=== PATIENT | female | born 1975 | race Two or more races ===

== ENCOUNTER 2022-08-21 02:23 | Inpatient (IN) | payer MEDICAID ==
[2022-08-21] VITALS (16 sets, daily range): BP systolic 77–141; BP diastolic 42–77
[~2022-08-21] VITALS: Ht 165.1 cm; Wt 60.8 kg
--- NOTE | 2022-08-21 02:25 | NUR ---
PT BROUGHT IN BY EMS; PT PLACED IN 5A Addendum: 08/21/22 at 0331 by [facility] OFFICERS AT [facility]
[2022-08-21] MEDS ORDERED: IV NORMAL SALINE 1000 ML BAG IV ONE (02:30)
[2022-08-21] MEDS ORDERED: HALOPERIDOL LACTATE 5 MG/1 ML VIAL IM ONE (02:30)
[2022-08-21 03:21] LABS: HEMATOCRIT 31.1 % (31.2-41.9); MEAN CORPUSCULAR HEMOGLOBIN 35.3 uug (24.7-32.8); MEAN CORPUSCULAR VOLUME 107.7 fL (75.5-95.3); PLATELET COUNT (AUTO) 120 K/uL (179-408)
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
[2022-08-21] MEDS ORDERED: HALOPERIDOL LACTATE 5 MG/1 ML VIAL ONE (03:24)
--- NOTE | 2022-08-21 03:29 | NUR ---
Pt is on 5150 for GD; pt was given haldol 10mg IM on the rt deltoid.
[2022-08-21 03:30] LABS: MAGNESIUM 2.2 mg/dL (1.8-2.4); PHOSPHOROUS 5.4 mg/dL (2.5-4.9)
[2022-08-21 03:31] LABS: ALANINE AMINOTRANSFERASE 33 U/L (14-59); ALKALINE PHOSPHATASE 116 U/L (50-136); ASPARTATE AMINOTRANSFERASE 52 U/L (15-37); BILIRUBIN,DIRECT 0.2 mg/dL (0.0-0.2); BILIRUBIN,TOTAL 0.8 mg/dL (0.2-1.0); CARBON DIOXIDE 26 mmol/L (21-32); CHLORIDE 93 mmol/L (98-107); CREATININE 7.4 mg/dL (0.6-1.3); GLUCOSE 89 mg/dL (74-106); POTASSIUM 3.4 mmol/L (3.5-5.1); TOTAL PROTEIN, SERUM 7.8 g/dL (6.4-8.2); UREA NITROGEN, BLOOD 45 mg/dL (7-18)
[2022-08-21 03:38] LABS: ACETAMINOPHEN < 2.0 ug/mL (10-30)
[2022-08-21 03:40] LABS: ETHANOL < 3 MG/DL (0-0)
[2022-08-21 03:45] LABS: BAND % (MANUAL) 1 % (0-10); LYMPHOCYTES % (MANUAL) 12 % (20-40); MONOCYTES % (MANUAL) 8 % (2-10)
[2022-08-21] MEDS ORDERED: OXYCODONE/APAP 5-325 MG TABLET PO ONE (03:45)
[2022-08-21 03:46] LABS: EOSINOPHILS % (MANUAL) 1 % (0-8); NEUTROPHILS % (MANUAL) 78 % (42-75)
[2022-08-21] MEDS ORDERED: OXYCODONE/APAP 5-325 MG TABLET ONE (03:46)
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
[2022-08-21] MEDS ORDERED: APIX2.5T PO (06:23)
[2022-08-21] MEDS ORDERED: NOREPINEPHRINE BITARTRATE 8 MG in IV NORMAL SALINE 250 ML IV ONE (09:45)
[2022-08-21] MEDS ORDERED: NOREPINEPHRINE BITARTRATE 4 MG/4 ML VIAL IV ONE ×3 (09:50→22:44)
--- NOTE | 2022-08-21 10:45 | NUR ---
at 1020, started levophed at 0.2 mcg/kg/min, pt was maintaining pressure but not increasing. increased drip rate to 0.4 mcg/kg/min.
[2022-08-21] MEDS ORDERED: PIPERACILLIN/TAZOBACTAM/D5W 50 ML IV ONE (11:39)
--- NOTE | 2022-08-21 11:40 | NUR ---
pt's pressure continued to climb passed 130 SBP, so readjusted levophed rate to 0.3 mcg/kg/min.
[2022-08-21] MEDS ORDERED: PIPERACILLIN SODIUM/TAZOBACTAM 3.375 G in IV DEXTROSE 5% 50 ML IV ONE (11:45)
--- NOTE | 2022-08-21 14:40 | NUR ---
pt's BP started dropping and stayed around 80SPB, mincreased rate again to 0.4 mcg/kg/min.
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
--- NOTE | 2022-08-21 16:21 | NUR ---
Clinical Social Work Note: SW spoke with patients cousin, Hung Christiansen, ([phone]) over the phone and she states the patient has not been in compliance with her dialysis this past week and has not slept the past couple of nights. SW will continue to follow up with the patient and family.
--- NOTE | 2022-08-21 17:01 | NUR ---
Nurse replace the bag of norepinephrine with a new bag. The rate continues at 0.4 mcg/kg/min. Patient able to communicate by asking to put water soluble lube on her lips and mouthcare as well.
[2022-08-21] MEDS ORDERED: ONDANSETRON 4 MG/2 ML VIAL IV PRN (18:15)
[2022-08-21] MEDS ORDERED: ACETAMINOPHEN 325 MG TABLET PO PRN (18:15)
--- NOTE | 2022-08-21 19:20 | NUR ---
Report given to "DONTE" RN, in ICU.
[2022-08-21] MEDS: IV D5/ 0.9% NACL 1,000 ML IV PRN (20:23)
[2022-08-21] MEDS ORDERED: NOREPINEPHRINE BITARTRATE 32 MG in IV NORMAL SALINE 218 ML IV PRN (20:45)
[2022-08-22] VITALS (66 sets, daily range): BP systolic 85–133; BP diastolic 39–76
[2022-08-22] MEDS: NOREPINEPHRINE BITARTRATE 32 MG in IV NORMAL SALINE 218 ML IV PRN (01:57)
--- NOTE | 2022-08-22 04:11 | NUR ---
Patient admitted from ED via stretcher. In no distress. generalized weakness. on Levophed Drip to maintain SBP>90. SBP 115 Drip at .4mcg/kg/min. Pt has H?O ESRD on Dialysis MWF. Oriented to room spoke with family member by phone. Assessment complete. Pt anuric, will continue to monitor.
[2022-08-22 04:57] LABS: HEMATOCRIT 31.9 % (31.2-41.9); MEAN CORPUSCULAR HEMOGLOBIN 35.5 uug (24.7-32.8); MEAN CORPUSCULAR VOLUME 106.7 fL (75.5-95.3); PLATELET COUNT (AUTO) 167 K/uL (179-408)
[2022-08-22 05:40] LABS: BILIRUBIN,TOTAL 0.7 mg/dL (0.2-1.0); MAGNESIUM 2.3 mg/dL (1.8-2.4); PHOSPHOROUS 6.5 mg/dL (2.5-4.9); POTASSIUM 3.6 mmol/L (3.5-5.1); TOTAL PROTEIN, SERUM 7.2 g/dL (6.4-8.2)
[2022-08-22 05:43] LABS: CREATININE 9.1 mg/dL (0.6-1.3)
[2022-08-22 05:53] LABS: THYROID STIMULATING HORMONE 5.87 mIU/mL (0.358-3.740)
[2022-08-22] MEDS: PANTOPRAZOLE SODIUM 40 MG TABLET.DR PO SCH ×2 (06:48→07:00)
--- NOTE | 2022-08-22 07:00 | NUR ---
Verbal bedside report received from Fiona RILEY. Pt. sleepy. Easily aroused. Complete intital assessment rendered. Cardiac moniotor intact depicting SR 60's. No ectopy noted. Alarms set per protocol. Levophed gtts. in progress conc. 32mg/250cc 0.9 NS. infusing on IV pump at 0.2 mcg/kg/min. 6.17 cc/hr. Pt. able to verbalize that she is hungry. Complete assess details noted on nursing flowsheet. Monitored for acute distress.
--- NOTE | 2022-08-22 07:01 | NUR ---
Ptremains on levophed drip attempts made to decrease rate and discontinue but pt's SBP trends below 90. hence had to be maintained at 0.2mcg. pt AAOx3 no episwodes of ams noted Calm Co-operative.
--- NOTE | 2022-08-22 07:30 | NUR ---
Night nurse Ghazala stated that protonix was given by her but she was unable to doccumment.
[2022-08-22] MEDS: HALOPERIDOL LACTATE 5 MG/1 ML VIAL IM PRN (07:49)
--- NOTE | 2022-08-22 07:59 | NUR ---
PTaaox4 Pending Dialysis today. Refuse bath in am. Call placed to Dr Martin re lab results.
--- NOTE | 2022-08-22 08:29 | NUR ---
SW spoke to patient's sister, Itzel ([phone]) over the phone and she states that she will come to visit the patient today around 12:45pm. SW informed the patient's nurse.
--- NOTE | 2022-08-22 09:32 | NUR ---
95% breakfast eaten w/o incident. Monitored for aspiration.
--- NOTE | 2022-08-22 10:36 | NUR ---
vat skimmer called to verify dialysis treatment today for pt. Pt. being prepared to be transferred to another room to accomodate treatment.
--- NOTE | 2022-08-22 12:23 | NUR ---
1200 late entry assumed care alert and oriented remains on room air, skin is pink, warm, and dry to touch. On Levophed at 0.2mck/kg/min. Anuric and awaiting dialysis today.
--- NOTE | 2022-08-22 14:24 | NUR ---
SW spoke to patient's sister, Itzel ([phone]) at the patient's bedside and provided legal resources to her and the patient.
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
--- NOTE | 2022-08-22 18:34 | NUR ---
Anuric tolerated dialysis well today. Eat small amount of meals 50%. BM x1 and no complaints of pain.
[2022-08-23] VITALS (57 sets, daily range): BP systolic 87–153; BP diastolic 48–94
[2022-08-23] MEDS: IV D5/ 0.9% NACL 1,000 ML IV PRN ×2 (04:53→21:33)
[2022-08-23 05:00] LABS: HEMATOCRIT 33.2 % (31.2-41.9); MEAN CORPUSCULAR VOLUME 106.2 fL (75.5-95.3); PLATELET COUNT (AUTO) 150 K/uL (179-408)
[2022-08-23 05:11] LABS: CREATININE 6.7 mg/dL (0.6-1.3); PHOSPHOROUS 4.7 mg/dL (2.5-4.9)
[2022-08-23] MEDS ORDERED: POTASSIUM CHLORIDE 10 MEQ TAB.PRT.SR PO ONE ×2 (06:15→12:30)
[2022-08-23] MEDS: PANTOPRAZOLE SODIUM 40 MG TABLET.DR PO SCH (06:22)
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
--- NOTE | 2022-08-23 07:00 | NUR ---
Recieved report from machinist 2nd shift nurse Shanon Chanel RN Pt is on room air and resting comfortably with good oxygen saturation and stable VS
[2022-08-23 08:06] LABS: HEPATITIS B SURFACE AG Negative (Negative)
[2022-08-23] MEDS: MORPHINE SULFATE 2 MG/1 ML DISP.SYRIN IV PRN ×3 (08:46→19:51)
--- NOTE | 2022-08-23 13:00 | NUR ---
Dr Martin on unit saw patient. I spoke with him about patients condition and informed him that patient is still on levophed at 0.2mg/kg/min and that when the pt was titrated down to 0.1 mg/kg/min her SBP dropped to 90 before I titrated it back to previous rate to maintain BP and perfusion. He wants to observe the pt until Saturday to see if we can wean her off levophed.
--- NOTE | 2022-08-23 13:35 | NUR ---
pt claims that she can't find her debit card which on the belongs list state that it was with the patient.
--- NOTE | 2022-08-23 13:37 | NUR ---
Belongings returned to patient from safe. 2 ID cards and $8901 USD 89 $100 bills and 1 1$ bill. Pt searched her belongings at bedside for her debit card which she says that she can't find. now. $9 more dollars found in patients pants 1 $5 bill and 4 $1 bills. Money counted in front of patient and with witness Raquel Rosas RN. Pt requests to keep belongings
--- NOTE | 2022-08-23 19:15 | NUR ---
Verbal endorsement received from Jeferson RILEY. Pt. is awake in bed watching television. monitor and storage bin tender intact depicting SR. Automatic NIBP cuff intact to left calf with interval of 1 hour , Levophed gtts infusing to right femoral TLC. at 0.2mcg/kg/min. Per day RN attempts to wean pt. off levophed have been unsuccessful. Pt. rapidly becomes hypotensive. Pt. monitored for acute distress. Bed in low position, 2 siderails up for pt. safety.
--- NOTE | 2022-08-23 19:45 | NUR ---
Pt. c/o generalized pain. points to left side of body from chest to legs as achy. States she also has back pain from lying in the bed. advised pt. not to get oob and to call for assistance when repositioning so central line doesnt get dislodged. Medicated for pain with PRN morphine 1mg. as ordered.
[2022-08-23] MEDS: NOREPINEPHRINE BITARTRATE 32 MG in IV NORMAL SALINE 218 ML IV PRN (22:45)
[2022-08-24] VITALS (41 sets, daily range): BP systolic 85–153; BP diastolic 37–84
[2022-08-24] MEDS: HALOPERIDOL LACTATE 5 MG/1 ML VIAL IM PRN ×2 (01:44→23:14)
[2022-08-24 05:03] LABS: HEMATOCRIT 31.1 % (31.2-41.9); MEAN CORPUSCULAR HEMOGLOBIN 35.5 uug (24.7-32.8); MEAN CORPUSCULAR VOLUME 107.2 fL (75.5-95.3); PLATELET COUNT (AUTO) 135 K/uL (179-408)
[2022-08-24 06:00] LABS: PHOSPHOROUS 4.4 mg/dL (2.5-4.9); POTASSIUM 3.7 mmol/L (3.5-5.1)
[2022-08-24 06:06] LABS: CREATININE 8.3 mg/dL (0.6-1.3)
--- NOTE | 2022-08-24 07:20 | NUR ---
pT. RESTING. APPEARS COMFORTABLE. ENDORSED TO ONCOMING SHIFT RN WITH LEVOPHED GTTS CONTINUED. PUMP DEPICTS 0.14 MCG/KG/MIN. VSS NO C/O PAIN DISCOMFORT.
[2022-08-24] MEDS: PANTOPRAZOLE SODIUM 40 MG TABLET.DR PO SCH (08:27)
[2022-08-24] MEDS: MORPHINE SULFATE 2 MG/1 ML DISP.SYRIN IV PRN ×2 (09:41→19:55)
[2022-08-24] MEDS: IV D5/ 0.9% NACL 1,000 ML IV PRN (14:41)
[2022-08-24] MEDS ORDERED: LORAZEPAM 2 MG/1 ML VIAL IV PRN (15:15)
--- NOTE | 2022-08-24 20:07 | NUR ---
BP 133/72, HR 72, Levophed turned off. off
[2022-08-24] MEDS ORDERED: PIPERACILLIN/TAZO 2.25 G in IV DEXTROSE 5% 50 ML IV SCH (21:00)
[2022-08-24] MEDS ORDERED: PIPERACILLIN/TAZO 2.25 GM VIAL ONE (23:35)
[2022-08-25] VITALS (32 sets, daily range): BP systolic 90–129; BP diastolic 39–68
[2022-08-25 05:26] LABS: HEMATOCRIT 29.8 % (31.2-41.9); MEAN CORPUSCULAR HEMOGLOBIN 35.4 uug (24.7-32.8); MEAN CORPUSCULAR VOLUME 107.6 fL (75.5-95.3); PLATELET COUNT (AUTO) 137 K/uL (179-408)
[2022-08-25 05:33] LABS: BILIRUBIN,TOTAL 0.5 mg/dL (0.2-1.0); CREATININE 6.1 mg/dL (0.6-1.3); MAGNESIUM 1.9 mg/dL (1.8-2.4); PHOSPHOROUS 4.5 mg/dL (2.5-4.9); POTASSIUM 3.6 mmol/L (3.5-5.1); TOTAL PROTEIN, SERUM 6.7 g/dL (6.4-8.2)
--- NOTE | 2022-08-25 07:30 | NUR ---
PATIENT IS ASLEEP AND IS IN NO DISTRESS. LEVOPHED INGFUSING ORDERED, BY THE RIGHT GROIN TLC PLEASE SEE IV SPREAD SHEET FOR RATE. IV SITE INTACT AND PATENT.
[2022-08-25] MEDS: PANTOPRAZOLE SODIUM 40 MG TABLET.DR PO SCH (07:50)
[2022-08-25] MEDS: MORPHINE SULFATE 2 MG/1 ML DISP.SYRIN IV PRN ×2 (07:50→13:15)
[2022-08-25] MEDS: PIPERACILLIN/TAZO 2.25 G in IV DEXTROSE 5% 50 ML IV SCH ×2 (08:02→15:20)
[2022-08-25] MEDS ORDERED: FOLIC ACID/VITAMIN B COMP W-C TABLET PO SCH (09:00)
[2022-08-25] MEDS: NOREPINEPHRINE BITARTRATE 32 MG in IV NORMAL SALINE 218 ML IV PRN (10:42)
--- NOTE | 2022-08-25 14:41 | NUR ---
Spoke with Dr Martin about pt's desire to be discharged and to go home. He ordered to stop pressors and monitor VS for the next hour and that he would be in to see her at around 16:00
[2022-08-25] MEDS ORDERED: AMOX-427 PO (16:57)
[2022-08-25] MEDS ORDERED: FOLI0.8T2 PO (16:57)
[2022-08-25] MEDS ORDERED: ACID1TAB4 PO (16:57)
--- NOTE | 2022-08-25 18:20 | NUR ---
Pt discharged home to follow up with primary medical doctor within 3 days for HD follow up as outpatient. Pt reports that she already has a follow up appointment for HD on Saturday that she will attend. Pt instructed not to drive until cleared by primary medical doctor. All questions answered and discharge instructions given to patient
== END 2022-08-25 20:00 | disposition home or self-care (01) | DRG 720 ==
LOC: ER 02:26 → CCU 19:34
PROVIDERS: ADMIT Internal Medicine; ATTEND Internal Medicine
PROC: B54BZZA Ultrasonography of Right Lower Extremity Veins, Guidance (ICD-10-PCS; 2022-08-21)
PROC: 06HM33Z Insertion of Infusion Device into Right Femoral Vein, Percutaneous Approach (ICD-10-PCS; 2022-08-21)
PROC: 5A1D70Z Performance of Urinary Filtration, Intermittent, Less than 6 Hours Per Day (ICD-10-PCS; principal; 2022-08-22)
DX: A41.9 Sepsis, unspecified organism (principal); J69.0 Pneumonitis due to inhalation of food and vomit; G92.8 Other toxic encephalopathy; N18.6 End stage renal disease; E44.0 Moderate protein-calorie malnutrition; I95.9 Hypotension, unspecified; D63.8 Anemia in other chronic diseases classified elsewhere; F29 Unspecified psychosis not due to a substance or known physiological condition; M32.9 Systemic lupus erythematosus, unspecified; Z99.2 Dependence on renal dialysis; E87.6 Hypokalemia; Z91.15 Patient's noncompliance with renal dialysis; Z79.01 Long term (current) use of anticoagulants; D53.9 Nutritional anemia, unspecified; N25.0 Renal osteodystrophy; V47.5XXA Car driver injured in collision with fixed or stationary object in traffic accident, initial encounter; Y93.9 Activity, unspecified; Y92.411 Interstate highway as the place of occurrence of the external cause; Z20.822 Contact with and (suspected) exposure to COVID-19; Z68.22 Body mass index [BMI] 22.0-22.9, adult; E87.70 Fluid overload, unspecified
CPT/HCPCS: 36415; 36556; 70030-TC; 70450; 71045; 83550; 83735; 84100; 84443; 84484; 85025; 86706; 87340; 90937; 93005; 93307; A4663; G0378; G0480; J1630; J2270; J2405; J2543; J3490; J7040; J7042